=== PATIENT | male | born 1985 | race Caucasian/White ===

== ENCOUNTER 2021-01-13 19:30 | Emergency (ER) | payer SELFPAY ==
--- NOTE | 2021-01-13 19:33 | ED.LOWEXIN ---
HPI - Extremity Injury (Lower) General Chief Complaint: Extremity Injury, Lower Stated Complaint: left thigh injury Time Seen by Provider: 01/13/21 19:33 Source: patient and RN notes reviewed History of Present Illness HPI Narrative: Patient is a 35-year-old male who presents the urgent care with complaints of left inner thigh pain. Patient states it started yesterday after an injury at work. 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 Patient states that he did not go to work today because of the pain in his work was suggesting was seen in a local urgent care. Patient has not taken anything [id number] for pain. States that rest does help. Denies of any bruising or other injuries. No other acute complaints. No acute distress noted. Patient aware of the plan of care. Some parts of this dictation were generated by voice recognition software and may contain typographical and/or grammatical inaccuracies. Related Data Allergies Allergy/AdvReac Type Severity Reaction Status Date / Time No Known Allergies Allergy Verified 01/13/21 19:40 Review of Systems Review of Systems: Narrative: CONSTITUTIONAL: Denies fever, chills, or sweats. EYES: Denies visual changes, redness, or discharge. ENT: Denies rhinorrhea, congestion, sore throat, or otalgia. CARDIOVASCULAR: Denies chest pain, palpitations, or edema. RESPIRATORY: Denies cough or dyspnea. GASTROINTESTINAL: Denies abdominal pain, nausea, vomiting, or diarrhea. GENITOURINARY: Denies dysuria or hematuria. SKIN: Denies rash or itching. MUSCULOSKELETAL: Reports of left thigh pain NEUROLOGIC: Denies headache, numbness, or weakness. All other systems reviewed are negative, except as documented in HPI. PMFSH Comments At the time of my signature, I reviewed and agree with the nursing past medical, surgical, social, and family history. There is no relevant family history pertinent to the patient complaint. Exam Narrative: Exam Narrative: GENERAL: This is a well-nourished, well-developed patient, in no apparent distress. HEAD: normocephalic, atraumatic. EYES: PERRL. Sclera clear/white. Vision is grossly intact. EARS: External ears normal NOSE: External nose normal with no obvious nasal discharge, nares without redness, no rhinorrhea. THROAT: Mucous membranes moist NECK: Neck supple CARDIOVASCULAR: Regular rate and rhythm without murmurs, gallops, or rubs. RESPIRATORY: Clear to auscultation. Breath sounds equal bilaterally. No wheezes, rales, or rhonchi. SKIN: warm, intact with no suspicious lesions or rash, good texture and turgor. NEURO: awake, alert, and oriented to person, place and time. There were no obvious focal neurologic abnormalities. EXTREMITIES: No clubbing, cyanosis, or edema. No joint tenderness, effusion, or edema noted. No calf tenderness. Negative Homans sign bilaterally. Mild tenderness to left inner thigh without any ecchymosis or notable deformity. No difficulty with weightbearing Course Vital Signs Vital signs: Vital Signs Temperature 98.5 F 01/13/21 19:39 Pulse Rate 97 01/13/21 19:39 Respiratory Rate 18 01/13/21 19:39 Blood Pressure 121/75 01/13/21 19:39 Pulse Oximetry 99 01/13/21 19:39 Temperature 98.5 F 01/13/21 19:39 Pulse Rate 97 01/13/21 19:39 Respiratory Rate 18 01/13/21 19:39 Blood Pressure 121/75 01/13/21 19:39 Pulse Oximetry 99 01/13/21 19:39 Reviewed MDM - Extremity Injury (Lower) MDM Narrative Medical decision making narrative: Advised the patient to avoid strenuous activity or heavy lifting/pushing/pulling. Use the ibuprofen as needed for pain. May use ice or heat as needed for comfort. Rest the area. Follow-up with your PCP within 2 to 5 days or for worsening symptoms or failure to improve. Differential Diagnosis Differential diagnosis: Likely ankle sprain and strain, fracture of femur, puncture wound of foot, fracture of toe and ankle fracture Criti
[2021-01-13 19:39] VITALS: BP 121/75; PULSE 97; RESP 18; TEMP 36.9; O2SAT 99
== END 2021-01-13 19:44 | disposition home or self-care (01) ==
PROVIDERS: Emergency Provider Nurse Practitioner Family
DX: S70.12XA Contusion of left thigh, initial encounter (principal); W22.8XXA Striking against or struck by other objects, initial encounter; Y99.0 Civilian activity done for income or pay
CPT/HCPCS: 99213; G0463

== ENCOUNTER 2021-01-21 12:59 | Emergency (ER) | payer SELFPAY ==
[2021-01-21 13:20] VITALS: BP 135/64; PULSE 88; RESP 16; TEMP 38; O2SAT 98
--- NOTE | 2021-01-21 13:40 | ED.GENADULT ---
HPI - General Adult General Chief complaint: Extremity Injury, Lower Stated complaint: Pain on left side from Back to Ankle Time Seen by Provider: 01/21/21 13:40 Source: patient and RN notes reviewed Mode of arrival: ambulatory Limitations: no limitations History of Present Illness HPI narrative: 35 year old male presents to [facility] with complaints of one week duration of left lower back pain from his buttock down to thigh and at times down to his ankle. Patient states that he knowns of no specific injury to his lower back, states that ambulation and weight bearing makes his pain worse. Patient denies any difficulty passing his urine or any problems with bowel, denies any saddle paraesthesia. Patient states that his pain is less when he is laying down. He denies any feeling of tingling or numbness in his left leg, pulses of left leg of adequate quality with foot warm to touch and pink. He reports that he has not taken any OTC medications. MD complaint: left lower back pain with radiation to leg Onset (ago): week(s) (1) Location: back and left Radiation: extremity Severity: severe Severity scale (1-10): 8 Quality: other (pulling and tightness sensation) Pain Consistency: constant Relieving factors: none Exacerbating factors: movement and other (ambulation) Associated symptoms: denies other symptoms Treatments prior to arrival: none Related Data Allergies Allergy/AdvReac Type Severity Reaction Status Date / Time No Known Allergies Allergy Verified 01/13/21 19:40 Review of Systems Review of Systems: Narrative: CONSTITUTIONAL: Denies fever, chills, or sweats. EYES: Denies visual changes, redness, or discharge. ENT: Denies rhinorrhea, congestion, sore throat, or otalgia. CARDIOVASCULAR: Denies chest pain, palpitations, or edema. RESPIRATORY: Denies cough or dyspnea. GASTROINTESTINAL: Denies abdominal pain, nausea, vomiting, or diarrhea. GENITOURINARY: Denies dysuria or hematuria. SKIN: Denies rash or itching. MUSCULOSKELETAL Positive for left lower back pain with radiation to left buttock and down leg,no specific other joint pain, or myalgia. NEUROLOGIC: Denies headache, numbness, or weakness. PSYCHIATRIC: Denies anxiety or depression. All systems reviewed & are unremarkable except as noted in HPI and below PMFSH Past Medical History Medical History (Updated 07/17/21 @ 16:51 by Missy Ferrari NP) Amputation of toe, right, traumatic Asthma Fracture of right clavicle Open left femoral fracture titanium richard Surgical History Surgical History (Updated 01/23/21 @ 10:23 by Missy Ferrari NP) History of artificial eye lens right Family History Family History (Updated 01/23/21 @ 10:20 by Missy Ferrari NP) Other No significant family history Social History Social History (Updated 01/23/21 @ 10:23 by Missy Ferrari NP) Smoking packs per day: 1 Smoking cigarettes per day: 20.0 Smoking status: Current every day smoker Tobacco type: cigarettes Alcohol intake: current Alcohol use details: social Substance use: current Substance use type: marijuana Gender identity (if verbalized by the patient): Male Comments At time of signature, agree with nursing past medical, surgical, social and family history. There is no relevant family history pertinent to the presenting complaint Exam Narrative: Exam Narrative: GENERAL: Well-appearing, well-nourished, and in no acute distress. HEAD: Normocephalic, atraumatic. EYES: PERRLA and EOMI. ENT: Nares clear, no rhinorrhea or epistaxis. Mucous membranes moist. NECK: Supple.no lymphadenopathy CHEST: Clear to auscultation. No respiratory distress.SAO2 98% on room air HEART: Regular rate and rhythm. No murmur heard. Normal peripheral pulses. ABDOMEN: Soft, nontender, nondistended, normal active bowel sounds. EXTREMITIES: Normal range of motion. No edema.limping gait with pain from left lower back down buttock into thigh some radiation of pa
[2021-01-21 14:07] VITALS: TEMP 36.8
== END 2021-01-21 14:06 | disposition home or self-care (01) ==
PROVIDERS: Emergency Provider Registered Nurse
DX: M54.32 Sciatica, left side (principal); J45.909 Unspecified asthma, uncomplicated; F17.210 Nicotine dependence, cigarettes, uncomplicated
CPT/HCPCS: 99213; G0463

== ENCOUNTER 2024-12-31 10:53 | Emergency (ER) | payer OTHER, SELFPAY ==
--- NOTE | ~2024-12-31 | XR_ITS ---
XR hand LT min 3V Ordering provider: Louise Galvez APRN History: . injury, pain . Comparison: None. FINDINGS: BONES: No acute fracture or dislocation. JOINT SPACES: Well maintained. SOFT TISSUES: Unremarkable. IMPRESSION: No acute osseous abnormality left hand. Reviewed, dictated and finalized at location A.
--- NOTE | ~2024-12-31 | XR_ITS ---
XR wrist LT min 3V Ordering provider: Louise Galvez APRN History: . injury, pain . Comparison: S 100 FINDINGS: BONES: No acute fracture or dislocation. No definite scaphoid fracture. JOINT SPACES: Well maintained. SOFT TISSUES: Normal. IMPRESSION: No acute osseous abnormality left wrist. Reviewed, dictated and finalized at location A.
--- NOTE | 2024-12-31 10:56 | ED_ITS ---
HPI - Extremity Injury (Upper) General Chief Complaint: Extremity Injury, Upper Stated Complaint: left hand injury Time Seen by Provider: 12/31/24 10:56 Source: patient Mode of arrival: ambulatory Limitations: no limitations History of Present Illness HPI narrative: Patient is a 39 year old male who presents to the clinic with complaints of left hand and wrist pain since last night. Patient states that he punched a door. He has not been taking anything [id number] for pain. He did use ice last night to reduce swelling. Denies any numbness, tingling, or radiation of pain. Related Data Home Medications ?Medication ?Instructions ?Recorded ?Confirmed ?Last Taken ?Type No Home Medications 12/31/24 Unknown History Allergies Allergy/AdvReac Type Severity Reaction Status Date / Time No Known Allergies Allergy Verified 12/31/24 11:05 Review of Systems Review of Systems: CONSTITUTIONAL: Denies body aches, fever, chills EYES: Denies visual changes ENT: Denies rhinorrhea, congestion CARDIOVASCULAR: Denies chest pain, palpitations, or edema. RESPIRATORY: Denies cough or dyspnea. SKIN: Denies rash, itching, or wounds. MUSCULOSKELETAL: Reports left wrist and hand pain. NEUROLOGIC: Denies headache, numbness, tingling, or weakness. All systems reviewed & are unremarkable except as noted in HPI and below PMFSH Past Medical History Medical History Amputation of toe, right, traumatic Open left femoral fracture titanium richard Fracture of right clavicle Asthma Surgical History Surgical History History of artificial eye lens right Family History Family History Other No significant family history Social History Social History Smoking packs per day: 1 Smoking cigarettes per day: 20.0 Smoking status: Current every day smoker Tobacco type: cigarettes Alcohol intake: current Alcohol use details: social Substance use: current Substance use type: marijuana Gender identity (if verbalized by the patient): Male Comments At time of signature, I have reviewed and agree with nursing past medical, surgical, social and family history unless otherwise noted. Please see nursing chart for further information. There is no relevant family history pertinent to the presenting complaint. Exam Narrative: MUSCULOSKELETAL EXAM GENERAL: Well-appearing, well-nourished, and in no acute distress. HEAD: Normocephalic, atraumatic. NECK: Supple. CHEST: Speaks in full sentences. No respiratory distress. HEART: Regular rate and rhythm. Normal and equal peripheral pulses. EXTREMITIES: Left wrist and hand has decreased strength, but normal sensation, decreased range of motion with flexion/extension/rotation, and endorses pain with movement. Edema noted to left hand. Mild ecchymosis noted to left hand on ulnar side, No point tenderness. No open wounds, skin tenting, or obvious deformity; alignment normal, pulse palpable and equal bilaterally, skin warm, dry, pink. Capillary refill less than 3 seconds. Distal sensation intact. SKIN: Warm, dry, no rash. NEURO: Alert and oriented x3. PSYCH: Normal mood and affect Course Course Level of Care: Express Care Visit MDM - Extremity Injury (Upper) MDM Narrative Medical decision making narrative: Discussed physical exam findings and xray. Advised supportive measures and signs/symptoms to go to the ER. Pt is appropriate for outpatient treatment and follow up. Differential Diagnosis Differential diagnosis: Likely sprain and strain of wrist, fracture of wrist, fracture of hand and other (sprain and strain of left hand. ) Imaging Data Radiologist's impression: ITS Impressions Wrist X-Ray 12/31/24 11:41 IMPRESSION: No acute osseous abnormality left wrist. Hand X-Ray 12/31/24 11:46 IMPRESSION: No acute osseous abnormality left hand. Critical Care Time Critical Care Time Critical Care Time: No Discharge Plan Discharge Clinical Impression: Left wrist sprain Qualifiers: Encounter type: initial encounter Wrist sprain location: unspecified location Qualified Code(s): S63.502A - Unspecified sprain of left wrist, initial e ncounter Patient Disposition: Home Condition: Stable Instructions: Wrist Sprain (ED) Additional Instructions: Rest. Avoid pushing, pulling, lifting or anything that worsens the symptoms Tylenol every 8 hours as needed You can alternate with ibuprofen Alternate ice/heat to the site. Lidocaine or salon pas pain patch or use pain cream like icy/hot or biofreeze. Follow up with your primary care provider as needed in 1 week Go to the ER for worsening symptoms or concerns Patient Language: [place] Prescriptions: No Action No Home Medications Follow-up/Referrals: UNKNOWN,DOCTOR [Non-Staff] - Stand Alone Forms: Work/School Release IP Time of Disposition: 11:55
[2024-12-31 11:00] VITALS: BP 145/72; PULSE 68; RESP 20; TEMP 36.9; O2SAT 98
== END 2024-12-31 11:59 | disposition home or self-care (01) ==
DX: S63.502A Unspecified sprain of left wrist, initial encounter (principal); W22.8XXA Striking against or struck by other objects, initial encounter; J45.909 Unspecified asthma, uncomplicated; Z96.1 Presence of intraocular lens
CPT/HCPCS: 73110; 73130; 99213; G0463